=== PATIENT | female | born 1935 | race Two or more races ===

== ENCOUNTER 2021-12-17 11:19 | Outpatient (CLI) | payer OTHER | END 2021-12-17 11:28 | disposition home or self-care (01) | LOC: SONOGRAMA 11:19 | PROVIDERS: ATTEND Internal Medicine Rheumatology | DX: S93.409A Sprain of unspecified ligament of unspecified ankle, initial encounter (principal) ==

== ENCOUNTER 2022-09-17 11:43 | Emergency (ER) | payer OTHER ==
[~2022-09-17] VITALS: Ht 157.5 cm; Wt 56.2 kg
[2022-09-17] MEDS ORDERED: NORVASC10 MG PO (11:56)
== END 2022-09-17 17:30 | disposition home or self-care (01) ==
LOC: ER 11:43
DX: S29.9XXA Unspecified injury of thorax, initial encounter (principal); W18.2XXA Fall in (into) shower or empty bathtub, initial encounter; Y93.F1 Activity, caregiving, bathing; Y92.012 Bathroom of single-family (private) house as the place of occurrence of the external cause; N13.30 Unspecified hydronephrosis